=== PATIENT | male | born 1970 | race Caucasian/White ===

== ENCOUNTER 2023-11-21 11:13 | Emergency (ER) | payer SELFPAY ==
[~2023-11-21] VITALS: Ht 167.6 cm; Wt 70.0 kg
[2023-11-21 11:17] VITALS: BP 139/91; PULSE 84; RESP 16; TEMP 98.2; O2SAT 98
[2023-11-21] MEDS ORDERED: TETRACAINE 0.5% OPHTH DROPS 4ML LEFTEYE ONE (12:45)
[2023-11-21] MEDS ORDERED: FLUORESCEIN SODIUM 1MG/STRIP LEFTEYE ONE (12:45)
[2023-11-21] MEDS ORDERED: CIPR2.5D20 EACHEYE (19:16)
== END 2023-11-21 14:10 | disposition left against medical advice (07) ==
LOC: ER 11:13
DX: H57.12 Ocular pain, left eye (principal)
CPT/HCPCS: 99281

== ENCOUNTER 2023-11-21 18:07 | Emergency (ER) | payer SELFPAY ==
[2023-11-21] MEDS ORDERED: CIPR2.5D20 EACHEYE (19:16)
== END 2023-11-21 20:19 | disposition home or self-care (01) ==
LOC: ER 18:07
DX: S05.02XA Injury of conjunctiva and corneal abrasion without foreign body, left eye, initial encounter (principal); X58.XXXA Exposure to other specified factors, initial encounter; Y93.89 Activity, other specified; Y92.89 Other specified places as the place of occurrence of the external cause; Y99.8 Other external cause status
CPT/HCPCS: 99282